=== PATIENT | male | born 1970 | race Caucasian/White ===

== ENCOUNTER 2018-01-11 08:47 | Emergency (ER) | payer BC ==
[2018-01-11 09:08] VITALS: BP 128/83
--- NOTE | 2018-01-11 09:32 | ED ---
Throat Pain/Nasal Congestion - HPI Summary HPI Summary: 47 yr old with runny nose, cough, sore throat. Onset about 2-3 days. [place] were coughing. He states his throat and voice get more hoarse as the day goes on. Denies fever. He has a history of Chron's disease. - History of Current Complaint Chief Complaint: UCRespiratory Time Seen by Provider: 01/11/18 09:11 - Allergies/Home Medications Allergies/Adverse Reactions: Allergies Allergy/AdvReac Type Severity Reaction Status Date / Time No Known Allergies Allergy Verified 01/11/18 09:01 Home Medications: Home Medications Cold Capsules 2 cap PO DAILY PRN 01/11/18 [History] PMH/Surg Hx/FS Hx/Imm Hx GI History: Reports: Hx Crohn's Disease - ON MEDICATION FOR History: Reports: Hx Kidney Stones - CURRENTLY ON THE RIGHT Sensory History: Denies: Hx Contacts or Glasses, Hx Hearing Aid Opthamlomology History: Denies: Hx Contacts or Glasses - Surgical History Surgery Procedure, Year, and Place: tonsillectomy. COLONOSCOPY WITH SEDATION Hx Anesthesia Reactions: No Infectious Disease History: No Infectious Disease History: Denies: Traveled Outside the [place] in Last 30 Days - Family History Known Family History: Positive: None - Social History Occupation: Employed Full-time Alcohol Use: Occasionally Alcohol Amount: 3 GLASSES PER WEEK Substance Use Type: Reports: None Smoking Status (MU): Never Smoked Tobacco Review of Systems Constitutional: Negative Positive: Sore Throat, Nasal Discharge Positive: Cough All Other Systems Reviewed And Are Negative: Yes Physical Exam Triage Information Reviewed: Yes Vital Signs On Initial Exam: Initial Vitals Temp Pulse Resp BP Pulse Ox 98.2 F 87 18 128/83 99 01/11/18 09:04 01/11/18 09:04 01/11/18 09:04 01/11/18 09:04 01/11/18 09:04 Vital Signs Reviewed: Yes Appearance: Positive: Well-Appearing, No Pain Distress Skin: Positive: Warm, Skin Color Reflects Adequate Perfusion Head/Face: Positive: Normal Head/Face Inspection Eyes: Positive: EOMI ENT: Positive: Pharyngeal erythema, Nasal congestion, TMs normal, Uvula midline. Negative: Tonsillar swelling, Muffled voice, Hoarse voice Neck: Positive: Nontender Respiratory/Lung Sounds: Positive: Clear to Auscultation, Breath Sounds Present Cardiovascular: Positive: RRR. Negative: Murmur Abdomen Description: Positive: Nontender Musculoskeletal: Positive: Strength/ROM Intact Neurological: Positive: Sensory/Motor Intact, Alert, Oriented to Person Place, Time, CN Intact II-III Psychiatric: Positive: Normal - Olya Coma Scale Best Eye Response: 4 - Spontaneous Best Motor Response: 6 - Obeys Commands Best Verbal Response: 5 - Oriented Coma Scale Total: 15 Diagnostics - Vital Signs Vital Signs Temp Pulse Resp BP Pulse Ox 01/11/18 09:04 98.2 F 87 18 128/83 99 - Laboratory Lab Results: Lab Results 01/11/18 Range/Units 09:11 Group A Strep Rapid Negative (Negative) Lab Statement: Any lab studies that have been ordered have been reviewed, and results considered in the medical decision making process. EENT Course/Dx - Course Course Of Treatment: 47 yr old with URI. DC home. - Diagnoses Provider Diagnoses: Upper respiratory infection, acute Discharge - Sign-Out/Discharge Documenting (check all that apply): Discharge/Admit/Transfer - Discharge Plan Condition: Good Disposition: HOME Patient Education Materials: Upper Respiratory Infection (DC), Pharyngitis (ED) Referrals: Hussain Hatch DO [Primary Care Provider] - 2 Days - Billing Disposition and Condition Condition: GOOD Disposition: Home
== END 2018-01-11 09:38 | disposition home or self-care (01) ==
LOC: UCCORT 08:47
DX: J06.9 Acute upper respiratory infection, unspecified (principal); K50.90 Crohn's disease, unspecified, without complications; N20.0 Calculus of kidney
CPT/HCPCS: 87651; 99211; G0463